=== PATIENT | female | born 1965 | race African-American/Black ===

== ENCOUNTER → 2016-03-16 | Outpatient (CLI) | payer BC ==
--- NOTE | 2016-03-18 07:48 | MM ---
Reason for exam: screening (asymptomatic). Last mammogram was performed 1 year and 11 months ago. History: Patient is nulliparous. Physical Findings: A clinical breast exam by your physician is recommended on an annual basis and results should be correlated with mammographic findings. MG 3D Screening Mammo W/Cad Bilateral CC and MLO view(s) were taken. Prior study comparison: April 06, 2014, bilateral MG screening mammo w CAD. May 04, 2012, mammogram, performed at [facility]. There are scattered fibroglandular densities. No significant changes when compared with prior studies. ASSESSMENT: Negative, BI-RAD 1 RECOMMENDATION: Routine screening mammogram of both breasts in 1 year.
== END | disposition home or self-care (01) ==
LOC: RADMAMWWP 14:18
PROVIDERS: ATTEND Family Medicine
DX: Z12.31 Encounter for screening mammogram for malignant neoplasm of breast (principal)
CPT/HCPCS: 77063; G0202

== ENCOUNTER → 2016-03-24 | Outpatient (CLI) | payer BC ==
[2016-03-24 09:13] LABS: Blood Urea Nitrogen 21 mg/dL (7-17); Non-African American GFR(MDRD) >60 (>60 ml/min/1.73 sqM)
--- NOTE | 2016-03-24 11:39 | CT ---
EXAMINATION TYPE: CT chest w con DATE OF EXAM: 03/24/2016 9:42 AM COMPARISON: NONE HISTORY: sarcoid CT DLP: 752 mGycm Automated exposure control for dose reduction was used. CONTRAST: CT scan of the chest is performed with IV Contrast, patient injected with 100 ml mL of Omnipaque 300. FINDINGS: LUNGS: The lungs are grossly clear, there is no concerning parenchymal mass or nodule identified. T here is no pleural effusion or pneumothorax seen. The tracheobronchial tree is patent. MEDIASTINUM: There are no greater than 1 cm hilar or mediastinal lymph nodes. No pericardial effusi on is seen. Coronary artery calcifications are present. No pleural or pericardial effusion. AORTA: No additional significant abnormality is seen. OTHER: The liver shows low attenuation likely due to fatty infiltration, may be enlarged. Cystic foc us associated with the right kidney measures 19 mm. IMPRESSION: Probable fatty infiltration of the liver. Coronary artery disease.
== END | disposition home or self-care (01) ==
LOC: RADCTMAIN 08:33
PROVIDERS: ATTEND Internal Medicine Rheumatology
DX: D86.9 Sarcoidosis, unspecified (principal); I25.10 Atherosclerotic heart disease of native coronary artery without angina pectoris
CPT/HCPCS: 82565; 84520; 71260; 36415; Q9967

== ENCOUNTER → 2017-08-15 | Outpatient (CLI) | payer BC ==
--- NOTE | 2017-08-15 14:48 | US ---
EXAMINATION TYPE: US venous doppler duplex LE BI DATE OF EXAM: 08/15/2017 1:35 PM COMPARISON: NONE CLINICAL HISTORY: 51-year-old female M79.661 Pain in right lower leg. Tightness bilateral knees, wors e on the left. Numbness bilateral legs SIDE PERFORMED: bilateral TECHNIQUE: The lower extremity deep venous system is examined utilizing real time linear array sonog jose with graded compression, doppler sonography and color-flow sonography. FINDINGS: VESSELS IMAGED: External Iliac Vein (EIV) Common Femoral Vein Deep Femoral Vein Greater Saphenous Vein * Femoral Vein Popliteal Vein Small Saphenous Vein * Proximal Calf Veins (on the right) (* superficial vessels) Right Leg: No evidence of DVT as visualized Left Leg: No evidence of DVT as visualized IMPRESSION: 1. No evidence for DVT within the right lower extremity imaged from the groin to the upper calf. 2. No evidence for DVT within the left lower extremity imaged from the groin to the knee.
== END | disposition home or self-care (01) ==
LOC: RADUSWWP 08-12 17:43
PROVIDERS: ATTEND Family Medicine
DX: M79.606 Pain in leg, unspecified (principal)
CPT/HCPCS: 93970

== ENCOUNTER → 2017-10-04 | Outpatient (CLI) | payer BC ==
--- NOTE | 2017-10-04 23:20 | BD ---
EXAMINATION TYPE: Axial Bone Density DATE OF EXAM: 10/04/2017 COMPARISON: NONE CLINICAL HISTORY: 52-year-old female osteoporosis Height: 5 FT 4 1/2 IN Weight: 235 FRAX RISK QUESTIONS: Family History (Parent hip fracture): ADOPTED Glucocorticoids (More than 3mos): YES (Ex: prednisone, prednisolone, methylprednisolone, dexamethasone, and hydrocortisone). RISK FACTORS HISTORY OF: Active: YES Postmenopausal woman: PARTIAL HYST AGE 47 MEDICATIONS: Additional Medications: AMLODIPINE, LOSARTIN, HUMIRA, JARDANCE, HUMALOG, Additional History: EXAM MEASUREMENTS: Bone mineral densitometry was performed using the [employer] System. Bone mineral density as measured about the Lumbar spine is: ----- L1-L4(G/cm2): 1.284 T Score Values are as follows: ----- L2: -0.1 ----- L3: 0.4 ----- L4: 1.4 ----- L1-L4: 0.9 BASELINE Bone mineral density about the R hip (g/cm2): 1.069 Bone mineral density about the L hip (g/cm2): 1.080 T Score values are as follows: -----R Neck: 0.2 -----L Neck: 0.3 -----R Total: 1.4 -----L Total: 1.5 BASELINE IMPRESSION: Normal (Values between +1 and -1 indicate normal bone mass). Consider repeating this study in 5 year s or sooner if there is some new clinical indication. NOTE: T-SCORE=SD OF THE YOUNG ADULT MEAN.
--- NOTE | 2017-10-06 08:45 | MM ---
Reason for exam: screening (asymptomatic). Last mammogram was performed 1 year and 7 months ago. History: Patient is nulliparous. Physical Findings: A clinical breast exam by your physician is recommended on an annual basis and results should be correlated with mammographic findings. MG 3D Screening Mammo W/Cad Bilateral CC and MLO view(s) were taken. Prior study comparison: March 16, 2016, bilateral MG 3d screening mammo w/cad. April 06, 2014, bilateral MG screening mammo w CAD. The breast tissue is almost entirely fat. There is chronic nodularity in the right breast. No significant changes when compared with prior studies. ASSESSMENT: Negative, BI-RAD 1 RECOMMENDATION: Routine screening mammogram of both breasts in 1 year.
== END | disposition home or self-care (01) ==
LOC: RADMAMWWP 09:19
PROVIDERS: ATTEND Family Medicine
DX: Z12.31 Encounter for screening mammogram for malignant neoplasm of breast (principal); Z13.820 Encounter for screening for osteoporosis
CPT/HCPCS: 77063; 77067; 77080

== ENCOUNTER → 2018-08-07 | Outpatient (CLI) | payer BC ==
--- NOTE | 2018-08-07 10:43 | FL ---
EXAMINATION TYPE: FL barium swallow DATE OF EXAM: 08/07/2018 CLINICAL HISTORY: Dysphagia. Patient describes sensation of fluid getting stuck side of her mouth aft er excessive coughing with the flu. TECHNIQUE: A double contrast esophagram is performed utilizing air and barium. A total of 1.55 john carl of fluoroscopic time was utilized during procedure. 58 fluoroscopic images were saved. COMPARISON: None FINDINGS: The esophagus shows normal motility and emptying into the stomach. Very small hiatal hernia is seen resulting in mild intraesophageal reflux. No stricture is noted. No significant gastroesopha geal reflux was seen during real time performance of this study. IMPRESSION: 1. Very small hiatal hernia resulting in mild degree of intraesophageal reflux. 2. No upper esophageal abnormality to correspond to the patient's complaints.
== END | disposition home or self-care (01) ==
LOC: RADFLWHC 09:51
PROVIDERS: ATTEND Family Medicine
DX: K44.9 Diaphragmatic hernia without obstruction or gangrene (principal); K21.9 Gastro-esophageal reflux disease without esophagitis
CPT/HCPCS: 74220

== ENCOUNTER → 2018-12-07 | Outpatient (CLI) | payer BC ==
--- NOTE | 2018-12-07 12:01 | MM ---
Reason for exam: screening (asymptomatic). Last mammogram was performed 1 year and 2 months ago. History: Patient is nulliparous. Benign cyst aspiration, 2009. Physical Findings: A clinical breast exam by your physician is recommended on an annual basis and results should be correlated with mammographic findings. MG 3D Screening Mammo W/Cad Bilateral CC, MLO, and XCCL view(s) were taken. Prior study comparison: October 04, 2017, bilateral MG 3d screening mammo w/cad. March 16, 2016, bilateral MG 3d screening mammo w/cad. The breast tissue is almost entirely fat. There are benign appearing round calcifications bilaterally. There is chronic nodularity in the right breast. There is no discrete abnormality. ASSESSMENT: Benign, BI-RAD 2 RECOMMENDATION: Routine screening mammogram of both breasts in 1 year.
== END | disposition home or self-care (01) ==
LOC: RADMAMWWP 09:33
PROVIDERS: ATTEND Family Medicine
DX: Z12.31 Encounter for screening mammogram for malignant neoplasm of breast (principal)
CPT/HCPCS: 77063; 77067

== ENCOUNTER → 2019-09-27 | Outpatient (CLI) | payer BC ==
--- NOTE | 2019-09-27 12:45 | US ---
EXAMINATION TYPE: US extremity nonvasc mass RT DATE OF EXAM: 09/27/2019 COMPARISON: NONE CLINICAL HISTORY: R22.41 LOCALIZED SWELLING, MASS AND LUMP RT LOWER LIMB. Right medial thigh area of pain x 1 year Right thigh: no abnormalities seen at patient's area of concern. Grayscale and color Doppler imaging performed. IMPRESSION: A discrete abnormality is not evident at the site of patient's palpable abnormality.
== END | disposition home or self-care (01) ==
LOC: RADUSWWP 12:13
PROVIDERS: ATTEND Family Medicine
DX: R22.41 Localized swelling, mass and lump, right lower limb (principal)

== ENCOUNTER → 2020-07-17 | Outpatient (CLI) | payer BC ==
--- NOTE | 2020-07-21 09:57 | MM ---
Reason for exam: screening (asymptomatic). Last mammogram was performed 1 year and 7 months ago. History: Patient is nulliparous. Benign cyst aspiration, 2009. Physical Findings: A clinical breast exam by your physician is recommended on an annual basis and results should be correlated with mammographic findings. MG 3D Screening Mammo W/Cad Bilateral CC and MLO view(s) were taken. Prior study comparison: December 07, 2018, bilateral MG 3d screening mammo w/cad. October 04, 2017, bilateral MG 3d screening mammo w/cad. There are scattered fibroglandular densities. ASSESSMENT: Benign, BI-RAD 2 RECOMMENDATION: Routine screening mammogram of both breasts in 1 year.
== END | disposition home or self-care (01) ==
LOC: RADMAMWWP 16:01
PROVIDERS: ATTEND Family Medicine
DX: Z12.31 Encounter for screening mammogram for malignant neoplasm of breast (principal)
CPT/HCPCS: 77063; 77067

== ENCOUNTER → 2021-06-09 | Outpatient (CLI) | payer MEDICAID ==
--- NOTE | 2021-06-09 15:48 | XR ---
EXAMINATION TYPE: XR knee limited RT DATE OF EXAM: 06/09/2021 COMPARISON: NONE HISTORY: pain TECHNIQUE: Two views are submitted. FINDINGS: There is narrowing of the medial compartment and patellofemoral compartment of the knee joint with hy pertrophic spurring of the patella.. Osseous structures are intact. No acute fracture seen. IMPRESSION: 1. Hypertrophic arthropathy.
== END | disposition home or self-care (01) ==
LOC: RADXRMAIN 14:30
PROVIDERS: ATTEND Physician Assistant Medical
DX: M12.861 Other specific arthropathies, not elsewhere classified, right knee (principal)

== ENCOUNTER → 2021-08-20 | Outpatient (CLI) | payer MEDICAID ==
--- NOTE | 2021-08-20 16:03 | BD ---
EXAMINATION TYPE: Axial Bone Density DATE OF EXAM: 08/20/2021 COMPARISON: 10.04.2017 CLINICAL HISTORY: 55 years year old Female. ICD-10 CODE: Z78.0 ASYMPTOMATIC MENOPAUSE Height: 64.5 Weight: 240 FRAX RISK QUESTIONS: Secondary Osteoporosis: RISK FACTORS HISTORY OF: Postmenopausal woman: HYSTERECTOMY AT 47 MEDICATIONS: Additional Medications: BP MED, INFLAMMATION MED, DIABETES MED, Additional History: EXAM MEASUREMENTS: Bone mineral densitometry was performed using the [employer] System. Bone mineral density as measured about the Lumbar spine is: ----- L1-L4(G/cm2): 1.234 T Score Values are as follows: ----- L1: 1.1 ----- L2: 0.0 ----- L3: -0.1 ----- L4: 0.7 ----- L1-L4: 0.4 Bone mineral density has: Decreased -4.9% since study of: 10.05.2017 Bone mineral density about the R hip (g/cm2): 1.151 Bone mineral density about the L hip (g/cm2): 1.162 T Score values are as follows: -----R Neck: 0.3 -----L Neck: 1.1 -----R Total: 1.1 -----L Total: 1.2 Bone mineral density has: Decreased -3.1% since study of: 10.04.2017 FRAX%s: The graph provided illustrates a 3.5% chance for a major osteoporotic fx and a 0.1% chance fo r the hips probability for fx in 10 years time. IMPRESSION: Normal (Values between +1 and -1 indicate normal bone mass). Consider repeating this study in 5 year s or sooner if there is some new clinical indication. NOTE: T-SCORE=SD OF THE YOUNG ADULT MEAN.
--- NOTE | 2021-08-21 07:54 | MM ---
Reason for Exam: Screening (asymptomatic). Last mammogram was performed 1 year(s) and 1 month(s) ago. Patient History: Menarche at age 10. Patient has no children. Hysterectomy at age 47. Postmenopausal. Benign Cyst Aspiration. Risk Values: Jessica 5 year model risk: 1.4%. NCI Lifetime model risk: 8.7%. Prior Study Comparison: 10/04/2017 Bilateral Screening Mammogram, [facility]. 12/07/2018 Bilateral Screening Mammogram, [facility]. 07/17/2020 Bilateral Screening Mammogram, [facility]. Tissue Density: There are scattered fibroglandular densities. Findings: Analyzed By CAD. There is no suspicious group of microcalcifications or new suspicious mass in either breast. Overall Assessment: Negative, BI-RAD 1 Management: Screening Mammogram of both breasts in 1 year. A clinical breast exam by your physician is recommended on an annual basis and results should be correlated with mammographic findings. Electronically signed and approved by: Avinash Arroyo M.D. Radiologis
== END | disposition home or self-care (01) ==
LOC: RADMAMWWP 09:04
PROVIDERS: ATTEND Family Medicine
DX: Z12.31 Encounter for screening mammogram for malignant neoplasm of breast (principal); Z78.0 Asymptomatic menopausal state
CPT/HCPCS: 77063; 77067; 77080